=== PATIENT | female | born 1940 | race Caucasian/White ===

== ENCOUNTER 2016-05-20 09:54 | Outpatient (CLI) | payer MEDICARE, OTHER ==
--- NOTE | 2016-05-20 11:50 | RAD ---
RADIOGRAPH CHEST 2 VIEWS: Date: 05/20/16 Time: 0956 HOURS HISTORY: 75-year-old female with acute cough. COMPARISON: 04/25/13. FINDINGS: Mild hyperinflation. Mild blunting of the posterior costophrenic angles is probably due to the hyper inflation rather than representing tiny pleural effusions. Mildly tortuous and ectatic thoracic aort a. Borderline cardiomegaly. No pulmonary vascular engorgement or pulmonary edema. Small focal areas of scar at the left mid and lower lung zones, and right upper and lateral mid lung zones. No consoli dation or pulmonary edema. No pneumothorax. Mild anterior wedge compression fracture deformity of on e of the lower thoracic vertebral bodies. No interval change overall. IMPRESSION: 1. No acute findings. 2. At least mild emphysema. 3. Small focal bilateral pulmonary scars. 4. No acute findings. YESY [] POS: [facility]
== END 2016-05-20 09:55 | disposition home or self-care (01) ==
LOC: NAV RAD 09:54
PROVIDERS: ATTEND Internal Medicine
DX: R05 Cough (principal); J43.9 Emphysema, unspecified; J98.4 Other disorders of lung
CPT/HCPCS: 71020

== ENCOUNTER 2016-11-30 15:06 | Outpatient (CLI) | payer MEDICARE, OTHER ==
--- NOTE | 2016-11-30 16:18 | CT ---
CT OF THE ABDOMEN AND PELVIS WITHOUT CONTRAST 11/30/16 INDICATION: Concern for diverticulitis. COMPARISON: None. FINDINGS: There is subsegmental atelectasis within the right middle lobe. Unopacified liver, spleen, pancreas and adrenal glands are within normal limits. Unopacified kidneys are unremarkable. There are moderate calcifications involving the abdominal aorta. There is wall thickening and pericolonic inflammatory stranding involving the sigmoid colon suspicio us for noncomplicated diverticulitis. No definite drainable fluid collection is evident. Small amoun t of gas is seen within the bladder. No definite acute osseous abnormality is evident. IMPRESSION: 1. Findings of noncomplicated sigmoid diverticulitis. 2. Small amount of gas within the bladder may be related to recent catheterization. Recommend c orrelation. POS: [facility]
[2016-11-30 16:19] LABS: ALT (SGPT) 27 U/L (8-55); AST (SGOT) 27 U/L (5-34); Albumin 4.6 g/dL (3.4-4.8); Alkaline Phosphatase 105 U/L (40-150); Anion Gap 19 mmol/L (10-20); BUN (Urea Nitrogen) 22 mg/dL (9.8-20.1); Calc. Creatinine Clearance 0 mL/min (70-130); Calcium 9.5 mg/dL (7.8-10.44); Carbon Dioxide 23 mmol/L (23-31); Chloride 98 mmol/L (98-107); Estimated GFR-MDRD 54; Globulin 2.9 g/dL (2.4-3.5); Glucose 96 mg/dL (83-110); Potassium 3.8 mmol/L (3.5-5.1); Protein, Total 7.5 g/dL (6.0-8.3); Sodium 136 mmol/L (136-145)
[2016-11-30 17:57] LABS: #Basophils 0.3 thou/uL (0.0-0.2); #Eosinphils 0.1 thou/uL (0.0-0.7); #Lymphocytes 2.5 thou/uL (1.20-3.40); #Neutrophils 9.4 thou/uL (1.40-6.50); %Eosinophils 0.4 % (0.0-10.0); %Lymphocytes 17.7 % (21.0-51.0); %Monocytes 13.9 % (0.0-10.0); Differential Comment SCANNED; Hemoglobin 12.9 g/dL (12.0-16.0); Mean Corpuscular HGB CONC 31.6 g/dL (32.0-36.0); Mean Corpuscular Hemoglobin 28.5 pg (27.0-31.0); Mean Corpuscular Volume 90.1 fl (81.0-99.0); Mean Platelet Volume 7.4 fL (7.4-10.4); Platelet Count 298 thou/uL (130-400); RBC Distribution Width 13.1 % (11.5-14.5); Red Blood Cell (RBC) Count 4.51 mill/uL (4.20-5.40); White Blood Cell (WBC) Count 14.2 thou/uL (4.8-10.8)
== END 2016-11-30 15:07 | disposition home or self-care (01) ==
LOC: NAV CT 15:06
PROVIDERS: ATTEND Internal Medicine
DX: K57.92 Diverticulitis of intestine, part unspecified, without perforation or abscess without bleeding (principal); K57.32 Diverticulitis of large intestine without perforation or abscess without bleeding
CPT/HCPCS: 74176; 80053; 85025

== ENCOUNTER 2017-02-04 17:06 | Inpatient (IN) | payer MEDICARE, OTHER ==
[~2017-02-04 17:06] MED LIST: Iopamidol 370 76% 100 ML VIAL ONE
[2017-02-04 20:00] LABS: #Basophils 0.1 thou/uL (0.0-0.2); #Eosinphils 0.1 thou/uL (0.0-0.7); #Lymphocytes 1.8 thou/uL (1.20-3.40); #Monocytes 1.8 thou/uL (0.11-0.59); #Neutrophils 8.9 thou/uL (1.40-6.50); %Eosinophils 0.4 % (0.0-10.0); %Lymphocytes 13.9 % (21.0-51.0); %Monocytes 14.2 % (0.0-10.0); %Neutrophils 70.4 % (42.0-75.0); Hemoglobin 12.4 g/dL (12.0-16.0); Mean Corpuscular HGB CONC 32.5 g/dL (32.0-36.0); Mean Corpuscular Hemoglobin 28.8 pg (27.0-31.0); Mean Corpuscular Volume 88.6 fl (81.0-99.0); Mean Platelet Volume 6.9 fL (7.4-10.4); Platelet Count 283 thou/uL (130-400); RBC Distribution Width 12.5 % (11.5-14.5); Red Blood Cell (RBC) Count 4.31 mill/uL (4.20-5.40); White Blood Cell (WBC) Count 12.6 thou/uL (4.8-10.8)
[2017-02-04 20:01] LABS: PTT 37.7 SEC (22.9-36.1); Prothrombin Time 13.7 SEC (12.0-14.7)
[2017-02-04 20:10] LABS: ALT (SGPT) 17 U/L (8-55); AST (SGOT) 21 U/L (5-34); Albumin 4.1 g/dL (3.4-4.8); Alkaline Phosphatase 98 U/L (40-150); Anion Gap 17 mmol/L (10-20); BUN (Urea Nitrogen) 14 mg/dL (9.8-20.1); Bilirubin, Total 0.8 mg/dL (0.2-1.2); Calc. Creatinine Clearance 0 mL/min (70-130); Calcium 9.1 mg/dL (7.8-10.44); Carbon Dioxide 22 mmol/L (23-31); Chloride 101 mmol/L (98-107); Estimated GFR-MDRD 82; Globulin 3.3 g/dL (2.4-3.5); Glucose 107 mg/dL (83-110); Lipase 7 U/L (8-78); Potassium 3.9 mmol/L (3.5-5.1); Protein, Total 7.4 g/dL (6.0-8.3); Sodium 136 mmol/L (136-145)
[2017-02-04] MEDS ORDERED: Ondansetron HCl/PF 4 MG/2 ML Vial ONE (20:13)
[2017-02-04] MEDS ORDERED: Fentanyl 100 MCG/2 ML VIAL ONE (20:13)
[2017-02-04 20:48] LABS: Bilirubin Negative (Negative); Blood, Urine Trace (Negative); Glucose, Urine (Dipstick) Negative (Negative); Leukocyte Moderate (Negative); Nitrite Negative (Negative); Protein, Urine (Dipstick) Negative (Neg-Trace); Urobilinogen 0.2 mg/dL (0.2-1.0)
[2017-02-04 20:49] LABS: Clarity SL HAZY (Clear)
[2017-02-04] MEDS ORDERED: Piperacillin/Tazobactam 3.375 GM VIAL ONE (20:53)
[2017-02-04] MEDS ORDERED: Sodium Chloride 0.9% 100 ML ONE (20:54)
[2017-02-04 21:00] LABS: Bacteria/HPF Rare-Few HPF (None Seen); RBC/HPF 0-3 HPF (0-3); Squamous Epithelial 0-3 HPF (0-3)
[2017-02-04] MEDS ORDERED: Sodium Chloride 0.9% 1,000 ML ONE (21:04)
--- NOTE | 2017-02-05 | CT ---
EXAM: ABDOMEN CT WITH CONTRAST PELVIC CT WITH CONTRAST 02/04/17 HISTORY: Abdominal pain. Evaluate for ruptured diverticulitis. Patient has two episodes of diarrhea. Diffuse abdominal pain. COMPARISON: 11/30/16 TECHNIQUE: Abdomen and pelvic CT are performed with IV contrast. Enteric contrast was also administration. Shana nal reformatted image are submitted for interpretation. FINDINGS: ABDOMEN CT: Lung bases are clear. Heart size is normal. No significant pericardial fluid. Descending thoracic ao rta and abdominal aorta demonstrate atherosclerosis. No evidence of periaortic fat stranding. Gallbladder is unremarkable. Intra and extrahepatic portal vein is unremarkable. Symmetric attenuati on of the psoas muscles. The liver, spleen, pancreas and adrenal glands have appropriate enhancement. Symmetric enhancement of the kidney. Subcentimeter hypodensities in the right renal cortex are too s mall to characterize. There is mild fullness in both intrarenal collecting systems. No evidence of p erinephric fat stranding. Bilateral ureters have an overall symmetric caliber. Minimal proximal to m id right periureteral fat stranding. There are no obstructing calcifications. No retroperitoneal mass, lymphadenopathy or hematoma. Small to moderate hiatal hernia is identified. Gastric mucosa is unremarkable. Multiple normal calib er small bowel loops. Ileocecal junction is normal. Appendix is not appreciated. No inflammation of the cecal apex. The right hemicolon and transverse colon are unremarkable. Descending colon is also unremarkable. Fecal material is noted. In the proximal sigmoid colon, there is mucosal thickening wi th pericolonic fat stranding. Diverticula are identified. There is evidence of diverticulitis. There is inflammatory change involving the sigmoid mesocolon. There is no evidence of abscess. No evidenc e of perforation or extraluminal air. Additional diverticula in the distal sigmoid colon and rectum are noted. There is no evidence of mass or lymphadenopathy. PELVIC CT: The uterus is surgically absent. No mass, lymphadenopathy or free air. Trace amount of free fluid in the pelvis. Urinary bladder is unremarkable. IMPRESSION: 1. Sigmoid colon diverticulitis without evidence of abscess or extraluminal air to suggest hector l perforation. 2. Interval mild prominence of the left and right intrarenal collecting system without associat ed obstructing calculus. Correlate clinically. POS: [facility]
[2017-02-05] MEDS ORDERED: Ondansetron HCl/PF 4 MG/2 ML Vial IVP PRN ×2 (00:25→09:01)
[2017-02-05] MEDS ORDERED: Ondansetron ODT 4 MG TAB SL PRN (00:25)
[2017-02-05] MEDS ORDERED: Fentanyl 100 MCG/2 ML VIAL SLOW IVP PRN (00:25)
[2017-02-05] MEDS ORDERED: HYDROcodone/Acetaminophen 5/325 mg Tablet PO PRN ×2 (00:25)
[2017-02-05] MEDS ORDERED: Sodium Chloride 0.9% 10 ML ONE ×2 (00:25→16:38)
[2017-02-05] MEDS ORDERED: Acetaminophen 325 MG TAB PO PRN (00:25)
[2017-02-05] MEDS: Dextrose 5 % And 0.9 % NaCl 1,000 ML IV SCH ×2 (00:30→12:05)
[2017-02-05 01:02] VITALS: BMI 29.9
[2017-02-05] MEDS: Piperacillin/Tazobactam 3.375 GM in Sodium Chloride 0.9% 100 ML IVPB SCH ×2 (03:37→08:49)
[2017-02-05] MEDS ORDERED: Sterile Water 20 ML ONE (08:22)
[2017-02-05] MEDS ORDERED: Ondansetron ODT 4 MG TAB PO PRN (09:01)
--- NOTE | 2017-02-05 09:39 | HP ---
DATE OF ADMISSION: 02/04/2017 REASON FOR ADMISSION/CHIEF COMPLAINT: Left lower quadrant pain, finding of diverticulitis on CT sca n. HISTORY OF PRESENT ILLNESS: The patient is a very pleasant 76-year-old white female with a history of intermittent left lower quadrant pain, felt to be due to irritable bowel, but with a distant hist ory of diverticulitis and stricture requiring partial colectomy, who presented with increasingly sev ere left lower quadrant pain on the day of admission rated as 8/10. She was found on CT scan to hav e sigmoid diverticulitis. Her white count was slightly elevated at 12,600. She had no fever, but s he was admitted to the hospital and started on IV antibiotics and clear liquid diet. PAST MEDICAL HISTORY: She has a past history, as mentioned above, of some abdominal pain, anorexia secondary to irritable bowel. She also has a history of hyperlipidemia, untreated secondary to into lerance to statins. FAMILY HISTORY: Positive for left knee surgery, hysterectomy, oophorectomy. SOCIAL HISTORY: She lives with her gradually worsening demented . She is a nonsmoker, nondr software build engineer. ALLERGIES: She is allergic to CODEINE, causing nausea. MEDICATIONS: She takes Lexapro 10 mg daily. REVIEW OF SYSTEMS: HEENT: She denies any headaches, dizziness, change in vision or hearing, hoarse ness, or dysphagia. Pulmonary: She denies cough, sputum production, pneumonia, asthma, tuberculosi s. Cardiovascular: She denies chest pain, orthopnea, paroxysmal nocturnal dyspnea, or edema. Jason rointestinal: See history of present illness. She does have intermittent nausea with no vomiting, abdominal cramps, and occasional diarrhea. Genitourinary: Denies dysuria, hematuria, or nocturia. Musculoskeletal: Denies stiffness, swelling in joints or extremities. PHYSICAL EXAMINATION: GENERAL: Patient is an elderly white female, alert, sitting up, eating her clear liquids, who is or iented x3 and cooperative. VITAL SIGNS: Showed her to have a blood pressure of 160/74, pulse 75, respirations 18, O2 sats 98%, afebrile. HEENT: Pupils are equal, round, and reactive to light and accommodation. Sclerae are anicteric. C onjunctivae pale. Oral mucous membranes well hydrated. NECK: Supple. There are no nodes or masses. JVP is not elevated. LUNGS: Clear. CARDIAC: Examination showed regular rhythm. No gallops or murmurs. ABDOMEN: Soft, but with significant left lower quadrant tenderness. No masses or rebound. SKIN/EXTREMITIES: Display no edema, clubbing, cyanosis. NEUROLOGIC: Shows no focal findings. LABORATORY: As mentioned above, shows a white count of 12,600, hematocrit 38, hemoglobin 12. No sh ift. Sodium is 136, potassium 3.9, chloride 101, bicarbonate 22, BUN 14, creatinine 0.69, glucose 1 07, lactate 1.0, lipase 7, AST 21, ALT 17. Urinalysis within normal limits. ASSESSMENT: A 76-year-old white female, who presents with findings and history consistent with clas sic sigmoid diverticulitis with no fever or signs of sepsis, has been admitted to the hospital, star kadeem on clear liquid diet, IV antibiotics with Zosyn, appears to have improved overnight and will be switched to IV Levaquin, continued on clear liquids, started on nutritional supplements, and hopeful ly diet will be advanced and switched to oral antibiotics tomorrow if on examination is less tender.
[2017-02-05] MEDS: Escitalopram Oxalate 10 mg Tablet PO SCH (12:03)
[2017-02-05] MEDS: Famotidine 20 MG TAB PO SCH (21:15)
[2017-02-06] MEDS ORDERED: Sodium Chloride 0.9% 10 ML ONE (05:07)
[2017-02-06 05:25] LABS: #Basophils 0.1 thou/uL (0.0-0.2); #Eosinphils 0.2 thou/uL (0.0-0.7); #Lymphocytes 1.9 thou/uL (1.20-3.40); #Monocytes 0.8 thou/uL (0.11-0.59); #Neutrophils 3.6 thou/uL (1.40-6.50); %Basophils 1.4 % (0.0-1.0); %Eosinophils 3.2 % (0.0-10.0); %Lymphocytes 28.7 % (21.0-51.0); %Monocytes 12.4 % (0.0-10.0); %Neutrophils 54.3 % (42.0-75.0); Hemoglobin 12.4 g/dL (12.0-16.0); Mean Corpuscular HGB CONC 33.3 g/dL (32.0-36.0); Mean Corpuscular Hemoglobin 29.2 pg (27.0-31.0); Mean Corpuscular Volume 87.5 fl (81.0-99.0); Mean Platelet Volume 7.2 fL (7.4-10.4); Platelet Count 290 thou/uL (130-400); RBC Distribution Width 12.5 % (11.5-14.5); Red Blood Cell (RBC) Count 4.26 mill/uL (4.20-5.40); White Blood Cell (WBC) Count 6.7 thou/uL (4.8-10.8)
[2017-02-06 05:43] LABS: Anion Gap 12 mmol/L (10-20); BUN (Urea Nitrogen) 6 mg/dL (9.8-20.1); Calc. Creatinine Clearance 83 mL/min (70-130); Calcium 9.3 mg/dL (7.8-10.44); Carbon Dioxide 27 mmol/L (23-31); Chloride 106 mmol/L (98-107); Estimated GFR-MDRD 84; Glucose 97 mg/dL (83-110); Sodium 141 mmol/L (136-145)
[2017-02-06 08:15] VITALS: BP 159/68; TEMP 97.3
[2017-02-06] MEDS: Famotidine 20 MG TAB PO SCH (09:10)
[2017-02-06] MEDS: Escitalopram Oxalate 10 mg Tablet PO SCH (09:10)
[2017-02-07] MEDS ORDERED: FLU VACC TS2017-18 (>65YR) 0.5 ML SYRINGE IM ONE (09:00)
== END 2017-02-06 11:30 | disposition home or self-care (01) | DRG 392 ==
LOC: NAV ERS 17:06 → NAV ACUTE 23:40
PROVIDERS: ADMIT Internal Medicine; ATTEND Internal Medicine
DX: K57.32 Diverticulitis of large intestine without perforation or abscess without bleeding (principal); R63.0 Anorexia; E78.5 Hyperlipidemia, unspecified
CPT/HCPCS: 36415; 74177; 80048; 80053; 81003; 81015; 83605; 83690; 85025; 85610; 85730; 96360; 96365; 96375; A4216; J1956; J2405; J2543; J3010; J7042; J7050

== ENCOUNTER 2018-08-27 21:41 | Emergency (ER) | payer MEDICARE ==
[2018-08-27] MEDS ORDERED: Sodium Chloride 0.9% 1,000 ML ONE (21:55)
[2018-08-27] MEDS ORDERED: Ondansetron PF 4 MG/2 ML Vial ONE (21:55)
[2018-08-27 22:05] LABS: #Basophils 0.1 thou/uL (0.0-0.2); #Eosinphils 0.1 thou/uL (0.0-0.7); #Lymphocytes 1.9 thou/uL (1.20-3.40); #Monocytes 0.9 thou/uL (0.11-0.59); #Neutrophils 7.4 thou/uL (1.40-6.50); %Basophils 0.9 % (0.0-1.0); %Eosinophils 1.4 % (0.0-10.0); %Lymphocytes 17.9 % (21.0-51.0); %Monocytes 8.4 % (0.0-10.0); %Neutrophils 71.4 % (42.0-75.0); Hemoglobin 12.4 g/dL (12.0-16.0); Mean Corpuscular HGB CONC 31.3 g/dL (32.0-36.0); Mean Corpuscular Volume 89.3 fL (78.0-98.0); Mean Platelet Volume 6.5 fL (7.4-10.4); Platelet Count 318 thou/uL (130-400); RBC Distribution Width 13.1 % (11.5-14.5); Red Blood Cell (RBC) Count 4.45 mill/uL (4.20-5.40); White Blood Cell (WBC) Count 10.4 thou/uL (4.8-10.8)
[2018-08-27 22:22] LABS: ALT (SGPT) 20 U/L (8-55); AST (SGOT) 26 U/L (5-34); Albumin 4.5 g/dL (3.4-4.8); Alkaline Phosphatase 113 U/L (40-150); Anion Gap 17 mmol/L (10-20); BUN (Urea Nitrogen) 21 mg/dL (9.8-20.1); Bilirubin, Total 0.4 mg/dL (0.2-1.2); Calc. Creatinine Clearance 0 mL/min (70-130); Calcium 9.4 mg/dL (7.8-10.44); Carbon Dioxide 20 mmol/L (23-31); Chloride 100 mmol/L (98-107); Estimated GFR-MDRD 68; Glucose 138 mg/dL (83-110); Lipase 26 U/L (8-78); Potassium 4.1 mmol/L (3.5-5.1); Protein, Total 7.5 g/dL (6.0-8.3); Sodium 133 mmol/L (136-145)
--- NOTE | 2018-08-27 22:35 | RAD ---
AP VIEW CHEST: 08/27/18 HISTORY: Chest pain. AP view chest is obtained on 08/27/18. AP view chest demonstrates the lungs to be well aerated. No evidence of active intrathoracic disease seen. No evidence of effusions, pneumonia or pneumothorax seen. IMPRESSION: Unremarkable AP view chest. POS: [facility]
[2018-08-28] MEDS ORDERED: Aspirin Chewable 81 MG TAB ONE (01:49)
[2018-08-28 07:38] LABS: Troponin I Less than 0.010 ng/mL (< 0.028)
== END 2018-08-28 08:27 | disposition home or self-care (01) ==
LOC: NAV ERS 21:41
DX: R07.2 Precordial pain (principal); R11.2 Nausea with vomiting, unspecified; I16.0 Hypertensive urgency; E03.9 Hypothyroidism, unspecified; F41.9 Anxiety disorder, unspecified; Z79.899 Other long term (current) drug therapy
CPT/HCPCS: 71045; 80053; 83690; 83735; 84484; 85025; 93005; 94760; 96361; 96374; J2405; J7050

== ENCOUNTER 2022-09-08 14:18 | Outpatient (CLI) | payer MEDICARE, OTHER | END 2022-09-08 14:19 | disposition home or self-care (01) | LOC: NAV RAD 14:18 | PROVIDERS: ATTEND Family Medicine | DX: M25.561 Pain in right knee (principal); M17.11 Unilateral primary osteoarthritis, right knee ==